=== PATIENT | male | born 1955 | race Caucasian/White ===

== ENCOUNTER → 2020-09-06 | Outpatient (CLI) | payer BC ==
--- NOTE | 2020-09-06 15:09 | ECHOS ---
STRESS ECHOCARDIOGRAM LUMASON: N/A Vial INDICATIONS: Palpitations MEDICATIONS: BASELINE HEART RATE: 77 BASELINE BLOOD PRESSURE: 129/78 MAXIMUM HEART RATE: 169 MAXIMUM BLOOD PRESSURE: 193/90 85% MPHR: 133 100% MPHR: 157 METS: 10.3 MAXIMUM STAGE REACHED: III TOTAL EXERCISE TIME: 8 minutes 48 seconds CLINICAL INFORMATION: Palpitations INDICATIONS: History of palpitations and frequent PVCs. Baseline heart rate 77 beats per minute. Baseline blood pressure 129/78 mmHg. Baseline 12-lead ECG shows sinus rhythm, normal heart rates, normal DC, narrow QRS and a 0.[address] depression inferolaterally. The patient exercised on a Adrian protocol for 8 minutes 48 seconds achieving a peak heart rate of 169 beats per minute. He was visibly short of breath at peak exercise. Baseline blood pressure 129/78 mmHg. Peak blood pressure 193/90 mmHg. Occasional PVCs were noted. No sustained or nonsustained arrhythmias noted. However, there was a [address] depression which increased to a [address]-depression horizontal at peak exercise and persisted more than 6 minutes into recovery. The patient was short of breath at peak exercise, but did not have any chest discomfort. The baseline 2D echo images were normal and showed normal LV size and systolic function without any segmental wall motion abnormalities. At peak exercise, there was excellent augmentation of overall LV contractility without development of any wall motion abnormalities. At recovery, regional global LV systolic function remained normal. IMPRESSION: Mildly abnormal ECG at baseline with occasional RVOT PVCs also noted in the early phase of exercise. These have a left bundle branch block morphology with a late transition and an M-shaped pattern in lead I. Abnormal ECG response with an at least [address]-depression noted at peak exercise associated shortness of breath. No commensurate echocardiographic abnormalities. There was excellent augmentation of overall LV contractility noted at peak exercise that persisted into recovery. MMODL / IJN: [id number] /
== END | disposition home or self-care (01) ==
LOC: RADNMMAIN 09:06
PROVIDERS: ATTEND Family Medicine
DX: I44.7 Left bundle-branch block, unspecified (principal); R94.31 Abnormal electrocardiogram [ECG] [EKG]
CPT/HCPCS: 93351

== ENCOUNTER 2020-09-15 06:36 | Day surgery (SDC) | payer BC ==
[2020-09-11 15:22] VITALS: BMI 25.8
[~2020-09-15 06:36] MED LIST: ALPRAZolam 0.25 MG TAB PO PRN; ALPRAZolam 0.5 MG TAB PO PRN; ASPIRIN 325 MG TAB PO STA; ATORVASTATIN 80 MG TAB PO STA; HEPARIN SODIUM,PORCINE 10,000 UNIT in SODIUM CHLORIDE 0.9% 1,000 ML IRRIGATION PRN; HEPARIN SODIUM,PORCINE 2,500 UNIT in SODIUM CHLORIDE 0.9% 250 ML IRRIGATION PRN; NITROGLYCERIN SL TABS 0.4 MG TAB SUBLINGUAL PRN; SODIUM CHLORIDE 0.9% 1,000 ML in EMPTY BAG 1 BAG IV ONE
[2020-09-15] MEDS ORDERED: SODIUM CHLORIDE 0.9% 1,000 ML IV ONE (06:44)
[2020-09-15 07:00] VITALS: RESP 16; TEMP 97
[2020-09-15] MEDS ORDERED: VERAPAMIL 2.5 MG/ML 2 ML AMP ONE (07:26)
[2020-09-15] MEDS ORDERED: LIDOCAINE 1% INJ 10MG/ML (20 ML MDV) ONE (07:26)
[2020-09-15] MEDS ORDERED: fentaNYL (PF) 50 MCG/ML 2 ML AMP ONE (07:26)
[2020-09-15] MEDS ORDERED: HEPARIN SODIUM 1,000 UN/ML (10ML VL) ONE (07:26)
[2020-09-15] MEDS ORDERED: MIDAZOLAM 2 MG/2 ML VIAL IV ONE ×2 (07:39→07:44)
[2020-09-15] MEDS ORDERED: LIDOCAINE 1% INJ 10MG/ML (20 ML MDV) SQ ONE (07:39)
[2020-09-15] MEDS ORDERED: fentaNYL (PF) 50 MCG/ML 2 ML AMP IV ONE (07:39)
[2020-09-15] MEDS: VERAPAMIL SYRINGE (5 MG/10 ML) INTRAARTER ONE ×2 (07:40→07:48)
[2020-09-15] MEDS ORDERED: HEPARIN SODIUM 1,000 UN/ML (10ML VL) IV ONE (07:45)
[2020-09-15] MEDS ORDERED: IOPAMIDOL-370 125ML BTL INJ ONE (07:48)
[2020-09-15] MEDS ORDERED: RX INFO: IV CONTRAST WAS GIVEN 1 EACH MISC MISCELLANE PRN (08:08)
[2020-09-15] MEDS ORDERED: SODIUM CHLORIDE 0.9% 1,000 ML IV SCH (08:15)
--- NOTE | 2020-09-15 09:55 | CC ---
CARDIAC CATHETERIZATION REPORT DATE OF SERVICE: September 15, 2020 PERFORMING PHYSICIAN: Alexsander Nunez MD. PROCEDURE PERFORMED: Selective right and left coronary angiogram. 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 He underwent stress echocardiogram and that came into be abnormal and because of that, a heart catheterization was advised. APPROACH: Right radial artery. COMPLICATION: None. LEVEL OF SEDATION: Moderate with sedation length of 15 minutes. PROCEDURE DESCRIPTION: After obtaining an informed consent, the patient was brought to the cardiac label stamper. The right radial artery was cannulated using micropuncture technique, the micropuncture wire passed easily then I placed a 5-[place] sheath at the right radial artery. The 2 mg of verapamil IA and 8000 units of heparin IV given. Subsequently, I did selective right and left coronary angiogram with JR4 and JL3.5 catheters. Left heart catheterization was not performed. The procedure was completed without any complication. SELECTIVE CORONARY ANGIOGRAM: 1. The right coronary artery is a large caliber vessel and it is a dominant vessel. The RCA is angiographically normal. Distally, it bifurcates into PDA and PLV branches and both appeared to be angiographically normal. 2. The left main is calcified. No disease was seen angiographically. It bifurcates into the left circumflex and ramus intermedius and left anterior descending artery. 3. The left circumflex is a large caliber vessel. It is a nondominant vessel. The left circumflex is angiographically normal and gives rise into the first and second obtuse marginal branches and they appeared to be angiographically normal. 4. The LAD is a large caliber vessel. The proximal LAD has mild eccentric plaque appeared to be in the range of 30% only. The mid and distal LAD appeared to be angiographically normal. The LAD gives rise into multiple diagonal branches. They appeared to be angiographically normal. 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 POSTPROCEDURE MANAGEMENT: 1. I would recommend aspirin and high intensity statin. 2. The patient is going to be discharged home and follow up with Dr. Figueroa as an outpatient. MMODL / IJN: [id number] /
[2020-09-15 10:47] VITALS: PULSE 62
[2020-09-15 12:08] VITALS: BP 142/65
== END 2020-09-15 12:28 | disposition home or self-care (01) ==
LOC: CATHCVL 06:36
PROVIDERS: ATTEND Internal Medicine Interventional Cardiology
DX: I25.10 Atherosclerotic heart disease of native coronary artery without angina pectoris (principal); E78.00 Pure hypercholesterolemia, unspecified; I49.3 Ventricular premature depolarization; Z87.891 Personal history of nicotine dependence; R94.39 Abnormal result of other cardiovascular function study
CPT/HCPCS: 93454; C1769; C1894; J2250; J2001; J3010; J1644; Q9967

== ENCOUNTER → 2021-05-15 | Outpatient (CLI) | payer BC ==
--- NOTE | 2021-05-15 15:27 | US ---
EXAMINATION TYPE: US carotid duplex BILAT DATE OF EXAM: 05/15/2021 COMPARISON: NONE CLINICAL HISTORY: R09.89 Carotid bruit. Bruit EXAM MEASUREMENTS: RIGHT: Peak Systolic Velocity (PSV) cm/sec ----- Right CCA: 82.5 ----- Right ICA: 92.5 ----- Right ECA: 88.3 ICA/CCA ratio: 0.9 RIGHT: End Diastole cm/sec ----- Right CCA: 24.0 ----- Right ICA: 42.1 ----- Right ECA: 14.3 LEFT: Peak Systolic Velocity (PSV) cm/sec ----- Left CCA: 87.4 ----- Left ICA: 76.7 ----- Left ECA: 71.9 ICA/CCA ratio: 1.1 LEFT: End Diastole cm/sec ----- Left CCA: 31.3 ----- Left ICA: 38.6 ----- Left ECA: 11.8 VERTEBRALS (direction of flow): Right Vertebral: Antegrade Left Vertebral: Antegrade Rhythm: Normal Grayscale images show no significant focal plaque. No significant stenosis seen bilaterally IMPRESSION: No hemodynamically significant stenosis in either internal carotid artery. Criteria for Assigning % of Stenosis / Diameter reduction (Estimation based on the indirect measurements of the internal carotid artery velocities (ICA PSV). 1. Normal (no stenosis)=ICA PSV < 125 cm/s: ratio < 2.0: ICA EDV<40 cm/s. 2. Less than 50% stenosis=ICA PSV < 125 cm/s: ratio < 2.0: ICA EDV<40 cm/s. 3. 50 to 69% stenosis=ICA PSV of 125 to 230 cm/s: ration 2.0 ? 4.0: ICA EDV 40-100 cm/s. 4. Greater than 70% stenosis to near occlusion= ICA PSV > 230 cm/s: ratio > 4.0: ICA EDV > 100 cm/s. 5. Near occlusion= ICA PSV velocities may be low or undetectable: variable ratio and ICA EDV. 6. Total occlusion=unable to detect flow.
== END | disposition home or self-care (01) ==
LOC: RADUSWWP 14:57
PROVIDERS: ATTEND Family Medicine
DX: R09.89 Other specified symptoms and signs involving the circulatory and respiratory systems (principal)
CPT/HCPCS: 93880

== ENCOUNTER 2021-06-22 10:28 | Day surgery (SDC) | payer BC ==
[2021-06-20 15:29] VITALS: BMI 25.2
[~2021-06-22 10:28] MED LIST changes: -ALPRAZolam 0.25 MG TAB PO PRN; -ALPRAZolam 0.5 MG TAB PO PRN; -ASPIRIN 325 MG TAB PO STA; -ATORVASTATIN 80 MG TAB PO STA; -HEPARIN SODIUM,PORCINE 10,000 UNIT in SODIUM CHLORIDE 0.9% 1,000 ML IRRIGATION PRN; -HEPARIN SODIUM,PORCINE 2,500 UNIT in SODIUM CHLORIDE 0.9% 250 ML IRRIGATION PRN; +LACTATED RINGERS 1,000 ML IV SCH; -NITROGLYCERIN SL TABS 0.4 MG TAB SUBLINGUAL PRN; -SODIUM CHLORIDE 0.9% 1,000 ML in EMPTY BAG 1 BAG IV ONE
[2021-06-22 11:15] VITALS: TEMP 97.6
[2021-06-22] MEDS ORDERED: PROPOFOL 10 MG/ML 20 ML VIAL IV ONE (12:03)
--- NOTE | 2021-06-22 12:28 | P.PCN ---
Date of Procedure: 06/22/21 Procedure(s) Performed: BRIEF HISTORY: Patient is a 65-year-old pleasant white male scheduled for an elective colonoscopy as a part of screening for colorectal neoplasia. PROCEDURE PERFORMED: Colonoscopy with biopsy. PREOPERATIVE DIAGNOSIS: Screening for colon cancer. IV sedation per Anesthesia. PROCEDURE: After informed consent was obtained, the patient, was brought into the endoscopy unit. IV sedation was administered by Anesthesia under continuous monitoring. Digital rectal examination was normal. Initially the Olympus CF-160 flexible video colonoscope was then inserted in the rectum, gradually advanced into the cecum without any difficulty. Careful examination was performed as the scope was gradually being withdrawn. Ileocecal valve and the appendiceal orifice were visualized and appeared normal. Prep was excellent. Mucosa of the cecum, ascending colon, transverse colon, descending colon appeared normal. In the sigmoid colon there was a 4-5 mm sessile polyp that was removed by cold biopsy. Rest of the, sigmoid colon, and rectum appeared normal. Early scattered sigmoid diverticula cyst seen. Retroflexion was performed in the rectum and no lesions were seen. The patient tolerated the procedure well. IMPRESSION: 5 mm sessile sigmoid polyp status post biopsy Scattered sigmoid diverticulosis RECOMMENDATIONS: Findings of this examination were discussed with the patient as well as his family. He was advised to follow with the biopsy results. If the biopsy reveals adenoma he can have a repeat colonoscopy in 5 years.
[2021-06-22 12:55] VITALS: BP 113/74; PULSE 74; RESP 16
== END 2021-06-22 13:25 | disposition home or self-care (01) ==
LOC: ORWHC2ENDO 10:28
PROVIDERS: ATTEND Internal Medicine Gastroenterology
DX: Z12.11 Encounter for screening for malignant neoplasm of colon (principal)
CPT/HCPCS: 45380; 88305; J2704

== ENCOUNTER → 2021-06-22 | Outpatient (CLI) | payer BC ==
--- NOTE | 2021-06-22 14:51 | US ---
EXAMINATION TYPE: US thyroid st tissue head/neck DATE OF EXAM: 06/22/2021 COMPARISON: NONE CLINICAL HISTORY: E83.52 Hypercalcemia. GLAND SIZE: Right Lobe: 5.6 x 2.3 x 2.0 cm Overall Parenchyma: heterogenous Left Lobe: 6.6 x 3.8 x 2.7 cm Overall Parenchyma: heterogeneous Isthmus Thickness: 0.4 cm NODULES RIGHT: # of nodules measured on right: 1 1. 1.2 X 1.2 x 1.0 cm, mid, solid or almost completely solid, hypoechoic nodule, which is taller th an wide, with smooth margins, without echogenic foci. TR 4 lesion. LEFT: # of nodules measured on left: 2 1. 3.0 X 1.6 x 3.2 cm, upper, solid or almost completely solid, hyperechoic nodule, which is wider than tall, with smooth margins, without echogenic foci. TR3 lesion 2. 3.2 X 2.2 x 2.3 cm, lower, solid or almost completely solid, isoechoic nodule, which is wider t balderas tall, with smooth margins, without echogenic foci. It is difficult to ascertain whether this is part of the thyroid or parathyroid in origin. Towards en d of study the second measured nodule appears more distinct 4 separate from the posterior margin of l eft thyroid gland. It appears more contiguous towards beginning of images obtained. ISTHMUS: # of nodules measured in the isthmus: 0 Bilateral neck scanned, no evidence of lymphadenopathy. IMPRESSION: Ultrasound Follow-up of the right thyroid nodule. Sampling of the more anterior 3.0 cm le ft thyroid nodule. Possible 3.2 cm posterior left parathyroid adenoma. Advise nuclear medicine parath yroid study follow-up to further evaluate. 2017 ACR TI-RADS LEVEL: TR-RADS 4 - Moderately Suspicious: Follow if > 1 cm, FNA if > 1.5 cm *Highest TI-RADS level nodule reported
== END | disposition home or self-care (01) ==
LOC: RADUSWWP 13:30
PROVIDERS: ATTEND Family Medicine
DX: E04.2 Nontoxic multinodular goiter (principal)
CPT/HCPCS: 76536

== ENCOUNTER → 2021-07-05 | Outpatient (CLI) | payer BC ==
--- NOTE | 2021-07-05 13:08 | NM ---
EXAMINATION TYPE: NM parathyroid w/spect DATE OF EXAM: 07/05/2021 COMPARISON: Ultrasound performed 06/22/2021 HISTORY: Hyperparathyroidism TECHNIQUE: Following administration of 24.7 mCi Tc99m Sestamibi. Anterior projection images of the neck and ches t were obtained 10 minutes and 3 hours post injection. SPECT images of the neck and chest were obtai pasquale and reconstructed in three axes. FINDINGS: Thyroid tracer washout: Delayed images demonstrate near-complete tracer washout from the thyroid. Lef t lobe of thyroid appears to be enlarged compatible with the largest thyroid nodules seen by ultrasou nd. Parathyroid uptake: The two-hour delayed images demonstrate faint increased uptake near the lower lou e of the right thyroid on the right. No corresponding uptake is seen to account for the ultrasound fi nding on the left.. Normal uptake: There is physiological tracer uptake in the myocardium, liver, salivary glands, and th yroid gland. IMPRESSION: The two-hour delayed images demonstrate faint increased uptake near the lower pole of the right thyro id on the right suspicious for parathyroid adenoma. No corresponding uptake is seen to account for th e ultrasound finding on the left.
== END | disposition home or self-care (01) ==
LOC: RADNMMAIN 07:29
PROVIDERS: ATTEND Family Medicine
DX: E21.3 Hyperparathyroidism, unspecified (principal)
CPT/HCPCS: 78071; A9500